=== PATIENT | male | born 1985 | race African-American/Black ===

== ENCOUNTER → 2021-07-03 | Outpatient (CLI) | payer OTHER ==
[~2021-07-03] MED LIST: CETI10TA74 PO; GADOTERATE 5 MMOL/10ML VIAL. INT ART ONE; IOHEXOL 300 MG/ML 50 ML VIAL. INT ART ONE; LIDOCAINE 1% Multi-Dose 20 ML VIAL. ID ONE
--- NOTE | 2021-07-03 15:47 | KCIC ---
Examination: MRI arthrogram left hip HISTORY: History of left hip pain, fall COMPARISON: None TECHNIQUE: Multiplanar multisequence MR imaging of the left hip after arthrogram injection FINDINGS: The left femoral head is within the acetabulum. The attachment of the hamstring tendon to the ischial tuberosity, attachment of the gluteal tendons t o the greater trochanter, attachment of the iliopsoas tendon to the lesser trochanter and the attachm ent of the rectus femoris tendon to the anterior inferior iliac spine grossly appears intact. There i s increased T2 signal identified in the rectus femoris muscle laterally probably strain. There is min imal increased signal identified in the anterior labrum. There is no obvious acute fracture identifie d. Minimal superficial fraying of the cartilage in the left hip joint. IMPRESSION: 1. Increased T2 signal identified in the rectus femoris muscle laterally probably strain. 2. Minimal increased signal identified in the anterior labrum could be prominent recess and less lik garret subtle labral tear. 3. Mild grade I chondromalacia. Electronically signed by: Bobby Manning MD (07/03/2021 3:45 PM) [id number]
--- NOTE | 2021-07-03 15:53 | KCIC ---
EXAM: FLUOROSCPY-GUIDED HIP ARTHROGRAM History: Left hip pain COMPARISON: None available TECHNIQUE: Consent: A written, informed consent was obtained from the patient prior to the procedure. Appropriate time out procedures were performed. The skin was prepped and draped in the usual fashion under aseptic precautions. Dilute 1% lidocaine w as used for local anesthesia. Under fluoroscopic guidance a 22 gauge long spinal needle was used to access the hip joint. 13 cc mix ture of of 5 mL of Omnipaque 300, 5 mL of lidocaine, 10 mL normal saline and 0.1 mL clariscan was inj ected. The patient was transferred to the MRI suite. 16 seconds of fluoroscopy was utilized. No immediate complications. Total fluoroscopic images 1. IMPRESSION: Technically successful left hip arthrogram. Electronically signed by: Bobby Manning MD (07/03/2021 3:50 PM) [id number]
== END | disposition home or self-care (01) ==
LOC: KCIC 12:26
PROVIDERS: ATTEND Physician Assistant
DX: M25.552 Pain in left hip (principal); S73.192A Other sprain of left hip, initial encounter; M94.252 Chondromalacia, left hip; Z79.899 Other long term (current) drug therapy; X58.XXXA Exposure to other specified factors, initial encounter; Y93.89 Activity, other specified; Y92.89 Other specified places as the place of occurrence of the external cause; Y99.8 Other external cause status
CPT/HCPCS: 27093; 73722; 77002; A9575; J3490; Q9967